=== PATIENT | male | born 1995 | race Caucasian/White ===

== ENCOUNTER 2017-11-28 16:36 | Emergency (ER) | payer OTHER ==
[~2017-11-28] VITALS: Ht 185.4 cm; Wt 105.0 kg
[~2017-11-28 16:36] MED LIST: ALLERGY10 M1 PO; AMOXICILLIN/CL875 MG PO; AUGMENTIN875TAB PO; BENADRYL25 MG PO; EPIPEN 2-PAK0.3 MG IM; PREDNISONE20 MG PO
[2017-11-28 17:14] LABS: HEMATOCRIT 42.4 % (39.0-50.0); HEMOGLOBIN 14.5 g/dl (14.0-18.0); IMMATURE GRANULOCYTES 0.3 % (0.0-1.0); MEAN CELL VOLUME 84.5 fL CALC (80.0-100.0); MEAN CORPUSCULAR HGB 28.9 pG CALC (26.0-32.0); MEAN CORPUSCULAR HGB CONC 34.2 g/L CALC (32.0-36.0); NEUT# 8.93 thou/uL (1.82-7.42); RED BLOOD COUNT 5.02 mill/uL (4.70-6.10); RED CELL DISTRI WIDTH 12.2 % (11.5-15.5)
[2017-11-28 17:29] LABS: ALBUMIN 4.6 g/dL (3.2-5.0); ALKALINE PHOSPHATASE 105 u/l (38-126); ANION GAP 19 (6-22 (CALC)); BILIRUBIN, TOTAL 0.6 mg/dL (0.0-1.4); BUN 13 mg/dL (9-20); BUN/CREATININE RATIO 12 (12-20 (CALC)); CALCIUM 9.6 mg/dL (8.4-10.2); CARBON DIOXIDE 20 mmol/l (22-30); CHLORIDE 110 mmol/l (95-108); GFR > 60 ML/MIN (>=60 (CALC)); GFR FOR AFR.AMER. > 60 ML/MIN (>=60 (CALC)); GLUCOSE 92 mg/dL (75-110); POTASSIUM 3.4 mmol/l (3.5-5.1); SGOT/AST 33 u/l (17-59); SGPT/ALT 52 u/l (21-72); SODIUM 146 mmol/l (137-146); TOTAL PROTEIN 7.3 g/dL (6.3-8.2)
[2017-11-28 17:37] LABS: MYOGLOBIN 89 ng/mL (0 - 121)
[2017-11-28 18:17] VITALS: BP 119/63
== END 2017-11-28 18:31 | disposition home or self-care (01) | DRG 313 ==
LOC: ED 16:36
PROVIDERS: Emergency Medicine
DX: R07.9 Chest pain, unspecified (principal)

== ENCOUNTER 2019-09-07 19:48 | Emergency (ER) | payer OTHER, BC ==
[~2019-09-07] VITALS: Ht 185.4 cm; Wt 103.4 kg
[2019-09-07] MEDS ORDERED: KEFLEX500 M1 PO ×2 (21:07→21:18)
[2019-09-07 21:15] VITALS: BP 129/74
== END 2019-09-07 21:15 | disposition home or self-care (01) | DRG 605 ==
LOC: ED 19:48
PROC: 0HQFXZZ Repair Right Hand Skin, External Approach (ICD-10-PCS; principal; 2019-09-07)
DX: S61.214A Laceration without foreign body of right ring finger without damage to nail, initial encounter (principal); S62.604A Fracture of unspecified phalanx of right ring finger, initial encounter for closed fracture; W23.0XXA Caught, crushed, jammed, or pinched between moving objects, initial encounter; Y93.89 Activity, other specified; Y92.89 Other specified places as the place of occurrence of the external cause; Y99.0 Civilian activity done for income or pay

== ENCOUNTER 2021-02-14 06:02 | Emergency (ER) | payer OTHER, BC ==
[~2021-02-14 06:02] MED LIST changes: +KEFLEX500 M1 PO
[2021-02-14 06:52] VITALS: BP 120/72
== END 2021-02-14 06:50 | disposition home or self-care (01) | DRG 563 ==
LOC: ED 06:02
DX: S63.501A Unspecified sprain of right wrist, initial encounter (principal); Y35.811A Legal intervention involving manhandling, law enforcement official injured, initial encounter; Y93.89 Activity, other specified; Y92.149 Unspecified place in prison as the place of occurrence of the external cause